=== PATIENT | male | born 1955 | race African-American/Black ===

== ENCOUNTER 2019-02-09 05:32 | Emergency (ER) | payer BC, OTHER ==
[2019-02-09] MEDS ORDERED: Ketorolac INJ* 30 MG/ML 1 ML VIAL IV PUSH ONE (06:09)
[2019-02-09 06:23] LABS: ABS Eosinophils 0.5 10^3/ul (0-0.6); ABS Lymphocytes 1.5 10^3/ul (1.0-4.8); ABS Monocytes 0.5 10^3/ul (0-0.8); ABS Neutrophils 3.7 10^3/ul (1.5-7.7); Eosinophil % 7.3 %; Hematocrit 38 % (42-52); Hemoglobin 13.1 g/dL (14.0-18.0); Lymphocyte % 24.3 %; Mean Corpuscular HGB Conc 34 g/dL (31-36); Mean Corpuscular Hemoglobin 29 pg (27-31); Mean Corpuscular Volume 83 fL (80-94); Mean Platelet Volume 7.9 fL (7.4-10.4); Platelet Count 236 10^3/uL (150-450); Red Blood Count 4.58 10^6 /uL (4.18-5.48); Red Cell Distribution Width 14 % (10-15); White Blood Count 6.3 10^3/uL (3.5-10.8)
[2019-02-09 06:50] LABS: Albumin 3.5 g/dL (3.2-5.2); Albumin/Globulin Ratio 0.8 (1-3); BUN/Creatinine Ratio 11.7 (8-20); Calcium 8.7 mg/dL (8.6-10.3); EGFR African American 98.4 (>60); EGFR Non-African American 81.3 (>60); Globulin 4.4 g/dL (2-4); Potassium 3.6 mmol/L (3.5-5.0); Total Bilirubin 0.5 mg/dL (0.2-1.0); Total Protein 7.9 g/dL (6.4-8.9)
[2019-02-09] MEDS ORDERED: Iohexol 300* (CONTRAST) 10 ML SDV IV ONE (07:06)
[2019-02-09] MEDS ORDERED: Clindamycin 600 MG/D5W BAG(*) 600 MG/50 ML BAG IV ONE (07:20)
[2019-02-09] MEDS ORDERED: Clindamycin 600 MG IVPREMIX(* 600 MG/50 ML SDV IV ONE (07:30)
--- NOTE | 2019-02-09 07:38 | ED ---
Throat Pain/Nasal Congestion - HPI Summary HPI Summary: 63-year-old male presents with dental pain for the past 5 days. He states he was having pain greatest on the right lower side. He called his dentist and placed on penicillin for the past 2 days. He states that since started having some ear pain and swelling in front of his left ear. He admits to headaches. He states has been having difficulty swallowing due to the swelling. He denies any sore throat. No chest pain shortness breath. Has a history of rheumatoid arthritis in remission. - History of Current Complaint Chief Complaint: EDEarPain Time Seen by Provider: 02/09/19 05:58 - Allergies/Home Medications Allergies/Adverse Reactions: Allergies Allergy/AdvReac Type Severity Reaction Status Date / Time No Known Allergies Allergy Verified 02/09/19 05:37 Home Medications: Home Medications Penicillin VK 500 MG TAB(NF) [Penicillin VK 500 mg Tab] 500 mg PO QID 02/09/19 [ History Confirmed 02/09/19] PMH/Surg Hx/FS Hx/Imm Hx Endocrine/Hematology History: Denies: Hx Diabetes Cardiovascular History: Denies: Hx Hypertension History: Denies: Hx Renal Disease Infectious Disease History: No Infectious Disease History: Denies: Traveled Outside the [place] in Last 30 Days - Family History Known Family History: Positive: Non-Contributory - Social History Alcohol Use: None Substance Use Type: Reports: None Smoking Status (MU): Never Smoked Tobacco Review of Systems Negative: Fever Positive: Dental Pain, Ear Ache Negative: Chest Pain Negative: Shortness Of Breath All Other Systems Reviewed And Are Negative: Yes Physical Exam Triage Information Reviewed: Yes Vital Signs On Initial Exam: Initial Vitals Temp Pulse Resp BP Pulse Ox 97.8 F 74 16 139/78 97 02/09/19 05:34 02/09/19 05:34 02/09/19 05:34 02/09/19 05:34 02/09/19 05:34 Vital Signs Reviewed: Yes Appearance: Positive: Well-Appearing Skin: Positive: Warm, Dry Head/Face: Positive: Normal Head/Face Inspection Eyes: Positive: Normal, EOMI, KAREN, Conjunctiva Clear ENT: Positive: Pharynx normal, TMs normal, Other - bump in fornt of left ear Dental: Positive: Percussion Tenderness @ - right lower dental Respiratory/Lung Sounds: Positive: Clear to Auscultation, Breath Sounds Present Cardiovascular: Positive: Normal, RRR Abdomen Description: Positive: Nontender, Soft Bowel Sounds: Positive: Present Musculoskeletal: Positive: Normal Neurological: Positive: Normal Psychiatric: Positive: Normal Diagnostics - Vital Signs Vital Signs Temp Pulse Resp BP Pulse Ox 02/09/19 05:34 97.8 F 74 16 139/78 97 - Laboratory Lab Results: Lab Results 02/09/19 02/09/19 Range/Units 06:18 06:18 WBC 6.3 (3.5-10.8) 10^3/uL RBC 4.58 (4.18-5.48) 10^6 /uL Hgb 13.1 L (14.0-18.0) g/dL Hct 38 L (42-52) % MCV 83 (80-94) fL MCH 29 (27-31) pg MCHC 34 (31-36) g/dL RDW 14 (10-15) % Plt Count 236 (150-450) 10^3/uL MPV 7.9 (7.4-10.4) fL Neut % (Auto) 59.1 % Lymph % (Auto) 24.3 % [place] % (Auto) 8.7 % Eos % (Auto) 7.3 % Baso % (Auto) 0.6 % Absolute Neuts (auto) 3.7 (1.5-7.7) 10^3/ul Absolute Lymphs (auto) 1.5 (1.0-4.8) 10^3/ul Absolute Monos (auto) 0.5 (0-0.8) 10^3/ul Absolute Eos (auto) 0.5 (0-0.6) 10^3/ul Absolute Basos (auto) 0.0 (0-0.2) 10^3/ul Absolute Nucleated RBC 0.0 10^3/ul Nucleated RBC % 0.0 Sodium 137 (135-145) mmol/L Potassium 3.6 (3.5-5.0) mmol/L Chloride 104 (101-111) mmol/L Carbon Dioxide 26 (22-32) mmol/L Anion Gap 7 (2-11) mmol/L BUN 11 (6-24) mg/dL Creatinine 0.94 (0.67-1.17) mg/dL Est GFR ( Amer) 98.4 (>60) Est GFR (Non-Af Amer) 81.3 (>60) BUN/Creatinine Ratio 11.7 (8-20) Glucose 115 H (70-100) mg/dL Calcium 8.7 (8.6-10.3) mg/dL Total Bilirubin 0.50 (0.2-1.0) mg/dL AST 47 H (13-39) U/L ALT 22 (7-52) U/L Alkaline Phosphatase 71 (34-104) U/L Total Protein 7.9 (6.4-8.9) g/dL Albumin 3.5 (3.2-5.2) g/dL Globulin 4.4 H (2-4) g/dL Albumin/Globulin Ratio 0.8 L (1-3) Result Diagrams: 02/09/19 06:18 02/09/19 06:18 Lab Statement: Any lab studies that have been ordered have been reviewed, and results considered in the medical decision making process. - CT maxillaryfacial CT Interpretation Completed By: Radiologist Summary of CT Findings: IMPRESSION: 1. Imaging of the oral cavity is degraded by streak artifact. The remaining aerodigestive. tract is grossly unremarkable. No drainable fluid collection. 2. Treated dental and periodontal disease. Discontinuity of the buccal cortex along teeth. 12 and 14 may be chronic status post root canals. EENT Course/Dx - Course Course Of Treatment: 63-year-old male presents with dental pain for the past 5 days. He states he was having pain greatest on the right lower side. He called his dentist and placed on penicillin for the past 2 days. He states that since started having some ear pain and swelling in front of his left ear. He admits to headaches. He states has been having difficulty swallowing due to the swelling. He denies any sore throat. No chest pain shortness breath. Has a history of rheumatoid arthritis in remission. On exam has trismus. Has bump noted in front of left ear. TMs normal. Tenderness of right lower jaw. No edema noted. Lungs to auscultation. wbc normal. got CT as unclear if this is an abscess or not from physicial exam. patient refused CT with contrast. ct shows no acute abscess. lump may just be lymph node or edema. will have patient switch to clindamycin and follow up with dentist. patient understand and agrees with plan. - Differential Diagnoses Differential Diagnoses: Dental Abscess, Fractured Tooth, Otitis Externa, Otitis Media - Diagnoses Provider Diagnoses: Dental infection Discharge - Sign-Out/Discharge Documenting (check all that apply): Patient Departure Patient Received Moderate/Deep Sedation with Procedure: No - Discharge Plan Condition: Good Disposition: HOME Prescriptions: Clindamycin Cap(NF) [Clindamycin Cap 300 mg Cap(NF)] 300 mg PO TID #20 cap Patient Education Materials: Toothache (ED) Referrals: Delfino France MD [Primary Care Provider] - Additional Instructions: stop PCN, start clindamycin three times a day for 7 days first dose given in ED Take ibuprofen or tyenlol every 6 hours for pain as needed Avoid hard, crunchy food until seen by dentist Return to ED if develop any new or worsening symptoms follow up with dentist as soon as possible - Billing Disposition and Condition Condition: GOOD Disposition: Home
[2019-02-09 08:47] VITALS: BP 128/76
== END 2019-02-09 08:46 | disposition home or self-care (01) ==
LOC: ED 05:32
DX: K04.7 Periapical abscess without sinus (principal); K08.89 Other specified disorders of teeth and supporting structures; H92.09 Otalgia, unspecified ear
CPT/HCPCS: 36415; 70487; 80053; 85025; 96365; 96366; 96375; 99283; J1885; Q9967

== ENCOUNTER → 2019-05-12 | Day surgery (SDC) | payer BC ==
[~2019-05-12] MED LIST: Lidocaine 1.5% EPI 1:200,000* 30 ML SDV ONE
--- NOTE | 2019-05-12 22:50 | OP ---
CC: Dr. Delfino France; Dr. Domingo Aguilar * DATE OF OPERATION: 05/12/19 - [facility] DATE OF : 57 SURGEON: Teo Celis MD GROUTER HELPER: None. ANESTHESIA: Local anesthesia. PRE-OP DIAGNOSIS: Headache. POST-OP DIAGNOSIS: Headache. OPERATIVE PROCEDURE: Left temporal artery biopsy. SPECIMEN: 3 cm portion of left temporal artery sent in formalin. DRAINS: None. DESCRIPTION OF PROCEDURE: Consent was signed by the patient. He was marked. Time-out was performed. After the patient was prepped, injection of lidocaine over the left temporal region was carried and a curvilinear incision was made. This was deepened down to the parietotemporal fascia, which was incised and an artery identified. The side branches were taken with hemoclips and both proximal and distal dissection was carried out and this was clipped and artery removed and sent off as specimen. Wound was irrigated and reapproximated with 3-0 Vicryl sutures followed by a 4- 0 Monocryl subcuticular suture. Steri-Strips and sterile dressing were applied. The patient tolerated the procedure well and was discharged home from the procedure room. [id number] #: [id number] MTDD
== END | disposition home or self-care (01) ==
LOC: OR 08:22
PROVIDERS: ATTEND Surgery
DX: R51 Headache (principal)
CPT/HCPCS: 88305